=== PATIENT | female | born 1960 | race American Indian/Alaskan Native ===

== ENCOUNTER 2017-03-03 12:44 | Emergency (ER) | payer MEDICAID ==
[2017-03-03 13:03] VITALS: RESP 18; TEMP 97.8
--- NOTE | 2017-03-03 13:48 | C.PDOC ---
History Of Present Illness 56 year old female presents to the ED for evaluation of persistent left ankle pain and swelling which began after she sprained the area 2 weeks ago. Patient states pain is worse after prolonged standing. PERSIST L ANKLE PAIN, SWELL. S/P SPRAIN 2 WEEKS AGO. PERSIST PAIN WORSE AFTER PROLONGED STANDING EXAM NAD EXT L LE: +MILD SWELL MED MALL/MED FOOT GEN TEND NO DEFORM SKIN INTACT NEURO INTACT Time Seen by Provider: 03/03/17 13:14 Chief Complaint (Nursing): Lower Extremity Problem/Injury History Per: Patient History/Exam Limitations: no limitations Onset/Duration Of Symptoms: Persistent, Other (2 weeks ) Current Symptoms Are (Timing): Still Present - Ankle/Foot Description Of Injury: Other (sprain ) Past Medical History Reviewed: Historical Data, Nursing Documentation, Vital Signs Vital Signs: Last Vital Signs Temp 97.8 F 03/03/17 15:29 Pulse 90 03/03/17 15:29 Resp 18 03/03/17 15:29 BP 123/71 03/03/17 15:29 Pulse Ox 99 03/04/17 00:12 - Medical History PMH: Gastritis, HTN Surgical History: Cholecystectomy Family History: States: Unknown Family Hx - Social History Hx Alcohol Use: Yes Hx Substance Use: No Review Of Systems Musculoskeletal: Positive for: Other (left ankle pain and swelling ) Physical Exam - Physical Exam Appears: Non-toxic, No Acute Distress Skin: Other (intact ) Extremity: Tenderness (generalized ), Capillary Refill (less than 2 seconds), No Deformity, Swelling (left lower extremity: mild swelling to medial malleolus/ medial aspect of foot ) Neurological/Psych: Oriented x3, Normal Speech, Normal Cognition Gait: Steady ED Course And Treatment O2 Sat by Pulse Oximetry: 99 (on RA) Pulse Ox Interpretation: Normal - Other Rad l ankle X-Ray: Interpreted by Me (AVULSION FX MED MALL) Progress Note: left ankle XR ordered and reviewed. Reevaluation Time: 14:44 Reassessment Condition: Improved (POSTERIOR SPLINT APPLIED BY PODIATRY RESIDENT DR ESTRADA) - Physician Consult Information Time Consulting Physician Contacted: 14:44 Outcome Of Conversation: D/W PODIATRY WILL EVAL IN ER Disposition Counseled Patient/Family Regarding: Studies Performed, Diagnosis, Need For Followup - Disposition Referrals: [facility] [Outside] [facility] [Outside] Disposition: HOME/ ROUTINE Disposition Time: 14:44 Condition: IMPROVED Additional Instructions: FOLLOW UP PODIATRY INSTRUCTED. Instructions: Splint Care (ED), Avulsion Fracture (ED) Forms: [facility] (Macedonian), Work Excuse - Clinical Impression Clinical Impression: Avulsion fracture of ankle - Scribe Statement The provider has reviewed the documentation as recorded by the Scribe (Luma Mccormick) Provider Attestation: All medical record entries made by the Scribe were at my direction and personally dictated by me. I have reviewed the chart and agree that the record accurately reflects my personal performance of the history, physical exam, medical decision making, and the department course for this patient. I have also personally directed, reviewed, and agree with the discharge instructions and disposition.
--- NOTE | 2017-03-03 15:19 | RAD ---
Left ankle three views History: Trauma. Comparison: None available. Findings: Large amount of medial malleolar soft tissue swelling. Small ossific density seen distal to the medial malleolus of the distal tibia suggestive for a small avulsion fracture. Prominent plantar and dorsal calcaneal spurring. Soft tissue calcifications seen anterior to the mid to distal medullary cavity of the tibia. Mild degenerative changes at the dorsal aspect of the midfoot. Impression: Large amount of medial malleolar soft tissue swelling. Small ossific density seen distal to the medial malleolus of the distal tibia suggestive for a small avulsion fracture. Prominent plantar and dorsal calcaneal spurring. Soft tissue calcifications seen anterior to the mid to distal medullary cavity of the tibia. Mild degenerative changes at the dorsal aspect of the midfoot. If pain persists, consider MRI.
[2017-03-03 15:30] VITALS: BP 123/71; PULSE 90
--- NOTE | 2017-03-03 21:14 | CP.PCM.CON ---
History of Present Illness - History of Present Illness History of Present Illness: 56 year old female patient with PMHx of HTN was seen at bedside after request for podiatry consultation concerning persistent left ankle pain and swelling for 2 weeks. Patient states that she sprained her Left ankle 2 weeks ago coming down stair. She also states that she sprains her left ankle regularly and feels her ankle is loose at times. Patient states pain has become worse past couple of days and cannot bear weight at this point. Patient denies of ant N/V/F/C or SOB today Review of Systems - Constitutional Constitutional: As Per HPI Past Patient History - Past Social History Smoking Status: Light Smoker < 10 Cigarettes Daily - CARDIAC Hx Hypertension: Yes - GASTROINTESTINAL Hx Gastritis: Yes - PSYCHIATRIC Hx Substance Use: No - SURGICAL HISTORY Hx Cholecystectomy: Yes Meds Allergies/Adverse Reactions: Allergies Allergy/AdvReac Type Severity Reaction Status Date / Time No Known Allergies Allergy Verified 03/03/17 13:03 Physical Exam - Constitutional Appears: Well, Non-toxic, No Acute Distress - Head Exam Head Exam: ATRAUMATIC - Extremities Exam Additional comments: Left lower extremity exam DERM: No open wound noted. No ecchymosis noted. No erythema noted. No sign of infection noted VASC: Palpable DP noted 2/4 bilaterally. Non-palpable PT noted. 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 Decreased passive/active ROM to left ankle secondary to guarding NEURO: Gross sensation intact - Neurological Exam Neurological exam: Oriented x3 - Psychiatric Exam Psychiatric exam: Normal Affect, Normal Mood - Skin Skin Exam: Normal Color, Warm Results - Vital Signs Recent Vital Signs: Last Vital Signs Temp 97.8 F 03/03/17 15:29 Pulse 90 03/03/17 15:29 Resp 18 03/03/17 15:29 BP 123/71 03/03/17 15:29 Pulse Ox 95 03/03/17 15:29 Assessment & Plan - Assessment and Plan (Free Text) Assessment: 56 yo female patient presenting with Left medial malleolus avulsion fracture Plan: Patient was seen, examined and treated in ED discussed in detail with attending Dr. Graham labs and vitals reviewed; afebrile Left lower extremity dressed with Garibay compression, posterior splint Patient advised to be non-weight bearing to left lower extremity with crutches Pain medication per ED Patient to follow up with Dr. Graham at [facility]
[2017-03-04 00:11] VITALS: O2SAT 99
== END 2017-03-03 15:30 | disposition home or self-care (01) ==
LOC: C.ER 12:44
DX: S82.52XA Displaced fracture of medial malleolus of left tibia, initial encounter for closed fracture (principal); X58.XXXA Exposure to other specified factors, initial encounter; I10 Essential (primary) hypertension; F17.210 Nicotine dependence, cigarettes, uncomplicated
CPT/HCPCS: 29515; 73610; 97116; 97161; 99284; G8978; G8979; G8980

== ENCOUNTER 2017-07-19 21:15 | Emergency (ER) | payer MEDICAID ==
[2017-07-19 21:23] VITALS: TEMP 97.8
--- NOTE | 2017-07-19 21:51 | C.PDOC ---
History Of Present Illness Raysa De Santiago is a 57 year old female, S/P Lt ankle fracture on 02/2017 and uses an orthopedic boot to walk, presents to the emergency department complaining of left ankle pain onset since yesterday. Patient doesn't recall any injury but states she had to pick an elderly parent of the floor one day prior to onset and unsure of twisting injury. She took Naproxen with minimal relief. Patient denies any other medical complaint. PMD: Maciej Albright Time Seen by Provider: 07/19/17 21:24 Chief Complaint (Nursing): Lower Extremity Problem/Injury History Per: Patient History/Exam Limitations: no limitations Onset/Duration Of Symptoms: Days (x1) Current Symptoms Are (Timing): Still Present Past Medical History Reviewed: Historical Data, Nursing Documentation, Vital Signs Vital Signs: Last Vital Signs Temp 97.8 F 07/19/17 22:45 Pulse 80 07/19/17 22:45 Resp 14 07/19/17 22:45 BP 130/80 07/19/17 22:45 Pulse Ox 98 07/19/17 22:45 - Medical History PMH: Gastritis, HTN Surgical History: Cholecystectomy Family History: States: Unknown Family Hx - Social History Hx Tobacco Use: Yes (light smoker <10 cigarettes daily) Hx Alcohol Use: Yes Hx Substance Use: No Review Of Systems Musculoskeletal: Positive for: Foot Pain (left ankle) Physical Exam - Physical Exam Appears: No Acute Distress Skin: Normal Color, Warm, Dry Head: Atraumatic, Normacephalic Eye(s): bilateral: Normal Inspection Neck: Normal ROM Extremity: Normal ROM (lower extremities), Tenderness (left ankle), Capillary Refill (<2 sec on left foot.), No Deformity, Swelling (left ankle but no foot swellling.) Extremity: Bilateral: Normal Color And Temperature Pulses: Left Dorsalis Pedis: Normal, Right Dorsalis Pedis: Normal Neurological/Psych: Oriented x3, Normal Motor, Normal Sensation Gait: Steady ED Course And Treatment O2 Sat by Pulse Oximetry: 96 (RA) Pulse Ox Interpretation: Normal - Other Rad Left ankle X-Ray: Interpreted by Me, Viewed By Me Interpretation: Old avulsion fx of medial malleolus, no new findings. Progress Note: Initial Plan: Toradol 30 mg IM, Ankle left 3 views routine [RAD] . Pt placed in an DELILAH wrap and advised follow up with podiatry. Pt is ambulatory in ED with no support Disposition Counseled Patient/Family Regarding: Diagnosis, Need For Followup, Rx Given - Disposition Referrals: Floyd Rocha DPM [Non-Staff] - Disposition: HOME/ ROUTINE Disposition Time: 22:34 Condition: STABLE Additional Instructions: Leg elevation Use DELILAH wrap as needed Continue PO naproxen PO Return to ER if worse Instructions: Ankle Sprain (DC) Forms: [email or web address] [facility] (Zimbabwean), Work Excuse - Clinical Impression Clinical Impression: Ankle pain, left - Scribe Statement The provider has reviewed the documentation as recorded by the Leonardibjonnathan Lerner All medical record entries made by the Leonardibjonnathan were at my direction and personally dictated by me. I have reviewed the chart and agree that the record accurately reflects my personal performance of the history, physical exam, medical decision making, and the department course for this patient. I have also personally directed, reviewed, and agree with the discharge instructions and disposition.
[2017-07-19 22:47] VITALS: BP 130/80; PULSE 80; RESP 14
[2017-07-20 01:37] VITALS: O2SAT 96
--- NOTE | 2017-07-20 08:26 | RAD ---
PROCEDURE: Left Ankle Radiographs. HISTORY: pain, swelling COMPARISON: Left ankle radiographs performed 03/03/17 FINDINGS: BONES: No acute displaced fracture. Evidence of remote fracture deformity of the medial malleolus best seen on the left ankle radiographs performed 03/03/17. Small calcaneal enthesophyte. Small heel spur JOINTS: No dislocation. SOFT TISSUES: Marked soft tissue swelling. No evidence of radiopaque foreign body. Tiny calcifications within the lateral soft tissues. OTHER FINDINGS: None. IMPRESSION: Marked soft tissue swelling. No acute displaced fracture or dislocation identified. If symptoms persist or if there is clinical concern, x-ray follow-up in 7-10 days should be considered.
== END 2017-07-19 22:47 | disposition home or self-care (01) ==
LOC: C.ER 21:15
DX: M25.572 Pain in left ankle and joints of left foot (principal); I10 Essential (primary) hypertension; F17.210 Nicotine dependence, cigarettes, uncomplicated
CPT/HCPCS: 73610; 96372; 99283; J1885